=== PATIENT | female | born 1990 | race Caucasian/White ===

== ENCOUNTER 2020-03-19 07:52 | Outpatient (REF) | payer OTHER, SELFPAY | END 2020-03-19 07:53 | disposition home or self-care (01) | LOC: HO.LAB 07:52 | PROVIDERS: PCP Pediatrics; Visit Provider Internal Medicine | DX: Z20.828 Contact with and (suspected) exposure to other viral communicable diseases (principal) | CPT/HCPCS: 87635 ==

== ENCOUNTER 2020-04-03 07:44 | Outpatient (REF) | payer OTHER, SELFPAY | END 2020-04-03 07:45 | disposition home or self-care (01) | LOC: HO.LAB 07:44 | PROVIDERS: Visit Provider Internal Medicine | DX: Z20.828 Contact with and (suspected) exposure to other viral communicable diseases (principal) | CPT/HCPCS: 87635 ==

== ENCOUNTER 2020-04-12 14:49 | Emergency (ER) | payer OTHER, SELFPAY ==
--- NOTE | 2020-04-12 14:58 | ED.URI ---
HPI - URI/Sore Throat General Chief Complaint: Upper Respiratory Symptoms Stated Complaint: flu like symptoms Time Seen by Provider: 04/12/20 14:58 Source: patient Mode of arrival: ambulatory Limitations: no limitations History of Present Illness MD elicited complaint: fever, cough and rhinorrhea Pertinent past history: other (hx of dizziness and syncope when hot or sick - not sure if she has dx) Onset (ago): day(s) (yesterday) Consistency: constant Severity: moderate Exacerbating factors: nothing Relieving factors: OTC cold medicine Context: sick contacts (familiy member in multi family home COVID positive) Associated symptoms: fever, chills, myalgias, diaphoresis, rhinorrhea, cough, shortness of breath and other (dizziness) Treatments prior to arrival: cold medicine (last night, taking mucinex) Related Data Previous Rx's Medication Instructions Recorded ondansetron 4 mg PO Q8H PRN #20 tab 04/12/20 Allergies Allergy/AdvReac Type Severity Reaction Status Date / Time peanut Allergy Hives Verified 04/12/20 15:07 Review of Systems Review of Systems: Constitutional : positive Fever, positive Chills, positive fatigue, positive Malaise ENT/Mouth : positive sore throat, positive runny nose Eyes: No Discharge Cardiovascular : No Chest Pain, No SOB Respiratory : No Cough, No Sputum Gastrointestinal : No Nausea, No Vomiting, No Diarrhea Genitourinary : No Dysuria, No Urinary Frequency Musculoskeletal : positive Myalgia Skin : No rash Neuro : No Headache PMFSH Past Medical History Attestation statement: The following information was validated with the patient. Medical History Autonomic dysfunction Social History Social History Smoking Status: Never smoker Use of substances other than those prescribed or required for medical reasons: No Advance Directives: No Advance Directives Information Provided: No Physical Exam Vital Signs: Vital Signs: Last Vital Signs Temp 99.5 F 04/12/20 15:11 Pulse 109 H 04/12/20 16:25 Resp 18 04/12/20 15:11 BP 142/97 H 04/12/20 15:11 Pulse Ox 96 04/12/20 16:25 Body Mass Index 33.6 Appearance: Alert. Oriented X3. anxious, tearful, no acute distress. Eyes: Pupils equal, round and reactive to light. ENT: Pharynx normal. Neck: Normal inspection. Neck supple. CVS: tachycardic heart rate and rhythm. Pulses normal. Respiratory: No respiratory distress. Breath sounds mild rhonchi noted Abdomen: Soft and nontender. Skin: Skin warm and dry. Normal skin color. Normal skin turgor. Extremities: No lower extremity edema. No calf ttp Neuro: Oriented X 3. No motor deficit. No sensory deficit. Course Course Course Narrative: feels much better with inhaler - HR 109 96% on RA still anxious but improved, stable for DC MDM - URI/Sore Throat MDM Narrative Medical decision making narrative: 30 yo female with hx of dizziness and syncope and when hot or sick comes in with fevers, cough and overall malaise - has positive family members with COVID, will need INH, tylenol, CXR, COVID swab, she is not hypoxic at this time Discharge Plan Discharge Clinical Impression: Viral infection Patient Disposition: Home, Self-Care Instructions: COVID-19 (Coronavirus Disease 2019) (ED) Additional Instructions: return to ED for any worsening symptoms or concerns you were tested for COVID we will call you with results in 2 to 4 days, wear a mask, socially distance TAKE TYLENOL FOR FEVERS AND PAIN, IBUPROFEN IF IT CONTINUES INHALER CAN USED 2 PUFFS EVERY 3 HOURS NEEDED FOR COUGH, WHEEZING, DYSPNEA Prescriptions: New ondansetron 4 mg tablet,disintegrating 4 mg PO Q8H PRN (Reason: nausea and vomiting) Qty: 20 RF: 0 Referrals: Physician,Unknown [Primary Care Provider] - 2 days (as needed if not better) Stand Alone Forms: Work/School Release
[2020-04-12 15:07] VITALS: BMI 33.6
[2020-04-12 15:08] VITALS: BP 142/97; PULSE 123; RESP 18; TEMP 37.5; O2SAT 96; BMI 33.6
--- NOTE | 2020-04-12 15:10 | XR_ITS ---
EXAMINATION: XR chest 1V CLINICAL INFORMATION: Cough COMPARISON: No prior chest x-ray available TECHNIQUE: XR chest 1V Tubes and lines: None Lungs and Yissel: Both lungs are clear. Pleura: Normal. Costophrenic angles are sharp. No pneumothorax. Heart and mediastinum: The mediastinum is within normal limits.. Bones: Skeletal structures included are normal for patient's age. XR/XR chest 1V IMPRESSION: No radiographic evidence of acute cardiopulmonary disease.
[2020-04-12 15:11] VITALS: BP 142/97; PULSE 119; RESP 18; TEMP 37.5; O2SAT 95
[2020-04-12] MEDS: Acetaminophen 325 MG TABLET 650 MG PO (15:38)
[2020-04-12] MEDS: Albuterol Sulfate 90 MCG 8 GM INHALER 2 PUFF INHALE (15:38)
[2020-04-12 16:25] VITALS: PULSE 109; O2SAT 96
--- NOTE | 2020-04-12 16:33 | PC.NURSE ---
PT TRIAGED, RECENT EXPOSURE T COVID. REPORTING SLIGHT SOB AND DRY COUGH, FEVERS AT HOME. FEBRILE TODAY, ALL OTHER VS WNL. NO OTHERSIGNIFICANT PMH. PT VERY ANXIOUS AT TRIAGE, REASSURED. RESP EVEN AND NONLABOURED. INSTRUCTED ON PROPER USE OF INHALER, WITH RETURN DEMONSTRATION. SKIN PWD, SPEAKING IN CLEAR FULL SENTENCES.
== END 2020-04-12 16:57 | disposition home or self-care (01) ==
PROVIDERS: Emergency Provider Emergency Medicine
DX: B34.9 Viral infection, unspecified (principal); R50.9 Fever, unspecified; R05 Cough; Z20.828 Contact with and (suspected) exposure to other viral communicable diseases
CPT/HCPCS: 71045; 94640; 94664; 99284; U0003